=== PATIENT | female | born 1970 | race Caucasian/White ===

== ENCOUNTER 2016-11-17 16:56 | Emergency (ER) | payer OTHER ==
[2016-11-17 17:02] VITALS: RESP 18
[2016-11-17] MEDS ORDERED: TDAP ADULT 0.5 ML INJ (BOOSTRIX) IM ONE (17:15)
--- NOTE | 2016-11-17 17:18 | EDPHY ---
H & P Time Seen by Provider: 11/17/16 17:00 HPI/ROS: CHIEF COMPLAINT: right hand laceration HISTORY OF PRESENT ILLNESS: 46-year-old left hand dominant female presents to emergency department with a laceration to her right hand. Patient was chopping wood with a small axis when she caught her right hand with the blade. Patient reports this happened 4 hours prior to arrival and she presents as the bleeding will not stop. Patient reports tetanus is not up-to-date, she denies numbness or tingling to this hand, no other complaints. Smoking Status: Current every day smoker Physical Exam: GEN: Awake, alert, oriented, no acute distress RESP: nl resp effort MSK: Full active flexion and extension of right thumb at IP and MTP joint, 2 point discrimination intact, cap refill less than 2 seconds SKIN: 3 cm flap v-shaped laceration to right thenar eminence Constitutional: Initial Vital Signs Temperature (C) 37 C 11/17/16 16:59 Heart Rate 81 11/17/16 16:59 Respiratory Rate 18 11/17/16 16:59 Blood Pressure 116/70 11/17/16 16:59 O2 Sat (%) 95 11/17/16 16:59 O2 Delivery Mode Room Air Allergies/Adverse Reactions: No Known Allergies Allergy (Unverified 11/17/16 16:58) Home Medications: Medication Instructions Recorded NK [No Known Home Meds] 11/17/16 MDM/Departure - MDM Procedures: Procedure: Laceration repair. Verbal consent was obtained from the patient. The 3 cm laceration on the right hand was anesthetized using 1% lidocaine epinephrine. The wound was carefully irrigated by the emergency department radio frequency technician. Next, the wound was prepped and draped in sterile fashion and explored to its base with a gloved finger. There were no deep structures involved. No tendon injury was identified. No vascular injury was identified. No foreign bodies were identified. The wound was repaired with 5.0 Prolene, 7. Simple interrupted sutures. The wound repair was simple. The procedure was performed by myself. Tetanus and antibiotic status were addressed. Medications Given: Discontinued Medications Diphtheria/Tetanus/Acell Pertussis (Boostrix) 0.5 ml IM .ONCE ONE Stop: 11/17/16 17:16 Last Admin: 11/17/16 17:29 Dose: 0.5 ml - Depart Disposition: Home, Routine, Self-Care Clinical Impression: Laceration of right hand Qualifiers: Encounter type: initial encounter Qualifier Code: (S61.411A) Laceration without foreign body of right hand, initial encounter Condition: Good Instructions: Laceration (ED), Care For Your Stitches (ED) Additional Instructions: Return to the emergency department in 12-14 days for suture removal, return sooner for any signs of infection, redness, pain, drainage from wound, any other questions or concerns. [place]errals[place],. [Primary Care Provider] - As per Instructions
[2016-11-27 08:35] VITALS: BP 102/70; PULSE 84; TEMP 98.1; O2SAT 97
== END 2016-11-17 18:00 | disposition home or self-care (01) ==
PROC: 0HQFXZZ Repair Right Hand Skin, External Approach (ICD-10-PCS; principal; 2016-11-17)
DX: S61.411A Laceration without foreign body of right hand, initial encounter (principal); F17.200 Nicotine dependence, unspecified, uncomplicated; Z23 Encounter for immunization; W26.8XXA Contact with other sharp object(s), not elsewhere classified, initial encounter; Y93.89 Activity, other specified

== ENCOUNTER 2016-11-24 08:48 | Emergency (ER) | payer OTHER ==
[2016-11-24 08:52] VITALS: BP 99/63; PULSE 82; RESP 16; TEMP 97.9; O2SAT 99
--- NOTE | 2016-11-24 09:12 | EDPHY ---
H & P Time Seen by Provider: 11/24/16 09:00 HPI/ROS: CHIEF COMPLAINT: Here for wound check HISTORY OF PRESENT ILLNESS: 46-year-old female presents for a wound check. She sustained a hand lacerations 7 days ago. She was seen here and the laceration was cleansed and stitched. She presents today because there is increased swelling around the wound. No tenderness or warmth. ROS: No numbness, weakness, excessive bleeding, syncopal episode, other injury. Smoking Status: Current every day smoker Physical Exam: Alert and oriented x3, no acute distress. Extremities: Suture laceration over the thenar eminence, with no surrounding erythema warmth or tenderness Neuro: Motor and sensory intact Vascular: Capillary refill brisk distally. Constitutional: Initial Vital Signs Temperature (C) 36.6 C 11/24/16 08:50 Heart Rate 82 11/24/16 08:50 Respiratory Rate 16 11/24/16 08:50 Blood Pressure 99/63 L 11/24/16 08:50 O2 Sat (%) 99 11/24/16 08:50 O2 Delivery Mode Room Air Allergies/Adverse Reactions: No Known Allergies Allergy (Unverified 11/17/16 16:58) Home Medications: Medication Instructions Recorded Cephalexin [Keflex (*)] 500 mg PO QID #28 cap 11/24/16 Medical Decision Making ED Course/Re-evaluation: There is no evidence of infection. Departure - Departure Disposition: Home, Routine, Self-Care Clinical Impression: Visit for wound check Condition: Good Instructions: Care For Your Stitches (ED) Additional Instructions: Return for suture removal on Wednesday. Take the antibiotics if you develop increasing redness or tenderness over the laceration. Referrals[place],. [Primary Care Provider] - As per Instructions Prescriptions: Cephalexin [Keflex (*)] 500 mg PO QID #28 cap
== END 2016-11-24 09:20 | disposition home or self-care (01) ==
DX: Z48.01 Encounter for change or removal of surgical wound dressing (principal); F17.200 Nicotine dependence, unspecified, uncomplicated

== ENCOUNTER → 2018-08-09 | Outpatient (CLI) | payer OTHER | LOC: BMCIMAGING 08:22 | PROVIDERS: ATTEND Family Medicine | DX: Z12.31 Encounter for screening mammogram for malignant neoplasm of breast (principal); Z80.3 Family history of malignant neoplasm of breast ==